=== PATIENT | male | born 1995 | race Caucasian/White ===

== ENCOUNTER 2022-08-21 08:11 | Emergency (ER) | payer MEDICAID ==
[~2022-08-21] VITALS: Ht 203.2 cm; Wt 150.0 kg
[2022-08-21 08:14] VITALS: BP 147/92
[2022-08-21 08:49] LABS: BASOPHILS % (AUTO) 0.8 % (0.0-2.0); EOSINOPHILS % (AUTO) 2.8 % (1.0-6.0); HEMATOCRIT 45.5 % (41-53); HEMOGLOBIN 15.1 g/dL (13.5-17.5); LYMPHOCYTES # (AUTO) 1.8 K/uL (1.0-4.8); LYMPHOCYTES % (AUTO) 34.6 % (22.0-44.0); MEAN CORPUSCULAR HEMOGLOBIN 28.5 pg (26.0-34.0); MEAN CORPUSCULAR HGB CONC 33.1 G/dL (31.0-37.0); MEAN CORPUSCULAR VOLUME 86 fL (80-100); MONOCYTES # (AUTO) 0.5 K/uL (0.1-1.0); MONOCYTES % (AUTO) 9.9 % (2.0-9.0); NEUTROPHILS # (AUTO) 2.7 K/uL (1.8-7.7); NEUTROPHILS % (AUTO) 51.9 % (40.0-70.0); PLATELET COUNT (AUTO) 223 K/uL (150-450); RED BLOOD CELL COUNT(AUTO) 5.28 MIL/uL (4.50-5.90); RED CELL DISTRIBUTION WIDTH 13.9 % (11.5-14.5)
[2022-08-21 08:58] LABS: ANION GAP 7 mmol/L (8-16); CALCIUM, TOTAL 8.8 mg/dL (8.8-10.5); CARBON DIOXIDE 29 mmol/L (22-29); CHLORIDE 105 mmol/L (98-107); CREATININE 1.23 mg/dL (0.60-1.30); GLOMERULAR FILTR. RATE CALC > 60 mL/min (>60); GLUCOSE,RANDOM 108 mg/dL (70-110); POTASSIUM 4.4 mmol/L (3.5-5.1); SODIUM SERUM 141 mmol/L (136-145); UREA NITROGEN, BLOOD 14 mg/dL (7-18)
[2022-08-21] MEDS ORDERED: ONDANSETRON HCL 4 MG/2 ML VIAL IVP ONE (09:00)
[2022-08-21] MEDS ORDERED: SODIUM CHLORIDE 0.9% 1,000 ML IV ONE (09:00)
[2022-08-21 09:03] LABS: ALANINE AMINOTRANSFERASE 52 U/L (12-78); ALBUMIN 4.1 g/dL (3.4-5.0); ALKALINE PHOSPHATASE 87 U/L (46-116); ASPARTATE AMINOTRANSFERASE 32 U/L (15-37); BILIRUBIN,TOTAL 0.4 mg/dL (0.1-1.0); LIPASE 50 U/L (73-393); TOTAL PROTEIN, SERUM 7.5 g/dL (6.4-8.2)
[2022-08-21] MEDS ORDERED: KETOROLAC TROMETHAMINE 30 MG/ML VIAL IVP ONE (10:15)
[2022-08-21] MEDS ORDERED: IBUP-1492 PO (11:00)
[2022-08-21] MEDS ORDERED: ONDA-104 PO (11:01)
== END 2022-08-21 11:32 | disposition home or self-care (01) ==
LOC: EMS 08:13
DX: R11.2 Nausea with vomiting, unspecified (principal); R51.9 Headache, unspecified; I10 Essential (primary) hypertension; F17.210 Nicotine dependence, cigarettes, uncomplicated; F12.90 Cannabis use, unspecified, uncomplicated
CPT/HCPCS: 99284; 96374; 96361; 96375; 80053; 83690; 85025; J1885; J2405; J7030

== ENCOUNTER 2022-10-06 00:29 | Emergency (ER) | payer MEDICAID ==
[~2022-10-06] VITALS: Ht 203.2 cm; Wt 159.0 kg
[~2022-10-06 00:29] MED LIST: IBUP-1492 PO; ONDA-104 PO
[2022-10-06 00:33] VITALS: TEMP 98.3
[2022-10-06] MEDS ORDERED: SULFAMETHOX/TRIMETH DS 800-160 MG/TABLET PO ONE (01:00)
[2022-10-06] MEDS ORDERED: KETOROLAC TROMETHAMINE 60 MG/2 ML VIAL IM ONE (01:00)
[2022-10-06] MEDS ORDERED: HYDROmorphone HCL 2 MG/ML SYRINGE IM ONE (01:00)
[2022-10-06 01:21] VITALS: BP 155/99; PULSE 103; RESP 20
[2022-10-06] MEDS ORDERED: HYDR-4072 PO (01:51)
== END 2022-10-06 02:13 | disposition home or self-care (01) ==
LOC: EMS 00:31
DX: G50.0 Trigeminal neuralgia (principal); R23.8 Other skin changes; I10 Essential (primary) hypertension; F17.210 Nicotine dependence, cigarettes, uncomplicated; F12.90 Cannabis use, unspecified, uncomplicated
CPT/HCPCS: 99283; 96372; J1170

== ENCOUNTER 2023-06-30 15:25 | Emergency (ER) | payer MEDICAID ==
[~2023-06-30] VITALS: Ht 203.2 cm; Wt 159.1 kg
[2023-06-30 16:52] VITALS: BP 135/83; PULSE 97; RESP 18; TEMP 98.7
[2023-06-30] MEDS ORDERED: CLIN-142 PO (17:11)
== END 2023-06-30 17:31 | disposition home or self-care (01) ==
LOC: EMS 15:25
DX: L05.91 Pilonidal cyst without abscess (principal); I10 Essential (primary) hypertension; F17.210 Nicotine dependence, cigarettes, uncomplicated; F12.90 Cannabis use, unspecified, uncomplicated
CPT/HCPCS: 99283